=== PATIENT | female | born 1990 | race Caucasian/White ===

== ENCOUNTER 2017-01-12 23:42 | Emergency (ER) | payer OTHER ==
[2017-01-13] MEDS ORDERED: HYDROmorphone 2 MG/ML SDV IVPUSH ONE ×4 (00:07→06:59)
[2017-01-13] MEDS ORDERED: Sodium Chloride 0.9% 10 ML Syringe FLUSH PRN (00:07)
--- NOTE | 2017-01-13 00:19 | EDM.PDOC ---
ED HPI GENERAL MEDICAL PROBLEM - General Chief Complaint: Abdominal Pain Stated Complaint: ABD PAIN Time Seen by Provider: 01/13/17 00:00 Source of Information: Reports: Patient, Family, Old Records History Limitations: Reports: No Limitations - History of Present Illness INITIAL COMMENTS - FREE TEXT/NARRATIVE: Tootie awoke about 1 hour ago with acute colicky RUQ pain with some radiation to the epigastrium. Pain is intense, associated with some nausea, but no vomiting. There is no fever, chills, sweats, voiding sxs, CVA or flank pain. She has taken no meds. - Related Data Allergies Allergy/AdvReac Type Severity Reaction Status Date / Time No Known Allergies Allergy Verified 02/29/16 09:01 Home Meds: Home Meds Albuterol Sulfate [Proair Hfa] 2 puff IH Q6H PRN 02/25/16 [History] Citalopram Hydrobromide [Celexa] 40 mg PO DAILY 02/25/16 [History] Etonogestrel [Nexplanon] 68 mg SQ .CONTINUOUS 02/25/16 [History] Montelukast [Singulair] 10 mg PO BEDTIME 02/25/16 [History] busPIRone [Buspar] 5 mg PO BID 02/25/16 [History] Dextroamphetamine/Amphetamine [Dextroamp-Amphetamin 20 mg Tab] 20 mg PO DAILY [History] Acetaminophen [Tylenol Jr. Meltaways] 640 mg PO Q4H PRN #0 tab.dis 03/03/16 [Rx] Acetaminophen [Tylenol] 650 mg PO Q6H PRN #0 cup 03/03/16 [Rx] HYDROmorphone [Dilaudid] 2 - 4 mg PO Q4H PRN #50 tablet 03/03/16 [Rx] Past Medical History HEENT History: Reports: Allergic Rhinitis Respiratory History: Reports: Asthma Gastrointestinal History: Reports: Other (See Below) (bariatric surgery) Genitourinary History: Reports: Pyelonephritis Psychiatric History: Reports: ADD, Anxiety, Depression Endocrine/Metabolic History: Reports: Obesity/BMI 30+ - Past Surgical History HEENT Surgical History: Reports: None Respiratory Surgical History: Reports: None GI Surgical History: Reports: Bariatric Procedure Female Surgical History: Reports: None Endocrine Surgical History: Reports: None Social & Family History - Tobacco Use Smoking Status *Q: Never Smoker - Caffeine Use Caffeine Use: Reports: None - Recreational Drug Use Recreational Drug Use: No ED ROS GENERAL - Review of Systems Review Of Systems: See Below Constitutional: Reports: Decreased Appetite HEENT: Reports: No Symptoms Respiratory: Reports: No Symptoms Cardiovascular: Reports: No Symptoms Endocrine: Reports: No Symptoms GI/Abdominal: Reports: Abdominal Pain, Decreased Appetite, Nausea : Reports: No Symptoms Musculoskeletal: Reports: No Symptoms Skin: Reports: No Symptoms Neurological: Reports: No Symptoms Psychiatric: Reports: No Symptoms Hematologic/Lymphatic: Reports: No Symptoms Immunologic: Reports: No Symptoms ED EXAM, GI/ABD - Physical Exam Exam: See Below Exam Limited By: No Limitations General Appearance: Alert, WD/WN, Moderate Distress Eyes: Bilateral: Normal Appearance Ears: Normal External Exam Nose: Normal Inspection Throat/Mouth: Normal Inspection, Normal Oropharynx Head: Normocephalic Neck: Normal Inspection, Supple Respiratory/Chest: Lungs Clear, Normal Breath Sounds, Chest Non-Tender Cardiovascular: Normal Peripheral Pulses, Regular Rate, Rhythm, No Murmur GI/Abdominal Exam: Soft, No Organomegaly, No Distention, No Mass, Tender (RUQ) Rectal (Female) Exam: Deferred Back Exam: Normal Inspection Extremities: Normal Inspection Neurological: Alert, Oriented, CN II-XII Intact, Normal Cognition, No Motor/ Sensory Deficits Psychiatric: Normal Affect, Anxious Skin Exam: Warm, Dry Lymphatic: No Adenopathy Course - Vital Signs Text/Narrative:: Tootie was administered Dilaudid 2 jeff IM with improvement in abdominal pain. A F&U abdominal x ray did not demonstrate any specific gas pattern or free air; labs noted total bili: 1.4, no elevation of LFT or CBC. A RUQ US is recommended for later this am. - Orders/Labs/Meds Orders: Active Orders 24 hr Category Date Time Status Abdomen 2V AP Flat Upright [CR] Stat Exams 01/13/17 00:07 Taken Sodium Chloride 0.9% [Normal Saline] 1,000 ml Med 01/13/17 00:15 Active IV ASDIRECTED Sodium Chloride 0.9% [Saline Flush] Med 01/13/17 00:07 Active 10 ml FLUSH ASDIRECTED PRN Peripheral IV Insertion Adult [OM.PC] Routine Oth 01/13/17 00:07 Ordered Medication Orders Sodium Chloride (Normal Saline) 1,000 mls @ 150 mls/hr IV ASDIRECTED BELKIS Last Admin: 01/13/17 00:37 Dose: 150 mls/hr Sodium Chloride (Saline Flush) 10 ml FLUSH ASDIRECTED PRN PRN Reason: Keep Vein Open Labs: Laboratory Tests 01/13/17 01/13/17 01/13/17 Range/Units 00:20 00:20 00:45 WBC 10.8 (4.5-12.0) X10-3/uL RBC 4.36 (3.23-5.20) x10(6)uL Hgb 13.7 (11.5-15.5) g/dL Hct 39.6 (30.0-51.3) % MCV 90.9 (80-96) fL MCH 31.3 (27.7-33.6) pg MCHC 34.5 (32.2-35.4) g/dL RDW 12.3 (11.5-15.5) % Plt Count 244 (125-369) X10(3)uL MPV 9.3 (7.4-10.4) fL Neut % (Auto) 68.6 (46-82) % Lymph % (Auto) 24.7 (13-37) % [place] % (Auto) 5.4 (4-12) % Eos % (Auto) 1 (1.0-5.0) % Baso % (Auto) 0 (0-2) % Neut # (Auto) 7.4 (1.6-8.3) # Lymph # (Auto) 2.7 (0.6-5.0) # [place] # (Auto) 0.6 (0.0-1.3) # Eos # (Auto) 0.1 (0.0-0.8) # Baso # (Auto) 0.0 (0.0-0.2) # Sodium 136 (135-145) mmol/L Potassium 3.1 L (3.5-5.3) mmol/L Chloride 105 (100-110) mmol/L Carbon Dioxide 21 L (23-29) mmol/L BUN 11 (5-20) mg/dL Creatinine 0.8 (0.6-1.3) mg/dL Est Cr Clr Drug Dosing TNP Estimated GFR (MDRD) > 60 (>60) BUN/Creatinine Ratio 13.8 (9-20) Glucose 146 H (80-116) mg/dL Calcium 9.2 (8.6-10.2) mg/dL Total Bilirubin 1.4 H (0.1-1.3) mg/dL AST 23 (5-27) IU/L ALT 20 (14-26) IU/L Alkaline Phosphatase 66 (56-112) IU/L Total Protein 5.3 L (6.0-8.0) g/dL Albumin 4.2 (3.5-5.2) g/dL Globulin 1.1 g/dL Albumin/Globulin Ratio 3.8 Urine Color Yellow (YELLOW) Urine Appearance Clear (CLEAR) Urine pH 7.0 H (5.0-6.5) Ur Specific [place] 1.015 (1.010-1.025) Urine Protein Negative (NEGATIVE) mg/dL Urine Glucose (UA) Normal (NEGATIVE) mg/dL Urine Ketones 15 H (NEGATIVE) mg/dL Urine Occult Blood Negative (NEGATIVE) Urine Nitrite Negative (NEGATIVE) Urine Bilirubin Negative (NEGATIVE) Urine Urobilinogen Normal (NEGATIVE) mg/dL Ur Leukocyte Esterase Negative (NEGATIVE) Urine RBC 0-5 (0) Urine WBC 0-5 (0) Ur Squamous Epith Cells Few H (NS,R,O) Urine Bacteria Few H (NS) Meds: Medications Generic Name Dose Route Start Last Admin Trade Name Freq PRN Reason Stop Dose Admin Sodium Chloride 1,000 mls @ 150 mls/hr 01/13/17 00:15 01/13/17 00:37 Normal Saline IV 150 mls/hr ASDIRECTED BELKIS Administration Sodium Chloride 10 ml 01/13/17 00:07 Saline Flush FLUSH ASDIRECTED PRN Keep Vein Open Discontinued Medications Generic Name Dose Route Start Last Admin Trade Name Freq PRN Reason Stop Dose Admin Hydromorphone HCl 2 mg 01/13/17 00:07 01/13/17 00:25 Dilaudid IVPUSH 01/13/17 00:08 2 mg ONETIME ONE Administration Departure - Departure Time of Disposition: 01:19 Disposition: Home, Self-Care 01 Condition: Fair Clinical Impression: Abdominal pain Qualifiers: Abdominal location: right upper quadrant Qualified Code(s): R10.11 - Right upper quadrant pain - Discharge Information Forms: ED Department Discharge - Problem List & Annotations (1) Abdominal pain SNOMED Code(s): 79643699 Code(s): R10.9 - UNSPECIFIED ABDOMINAL PAIN Status: Acute Current Visit: Yes Annotation/Comment:: Patient advised to return to [facility] for further diagnositic imaging for suspected GB disease. Qualifiers: Abdominal location: right upper quadrant Qualified Code(s): R10.11 - Right upper quadrant pain - Problem List Review Problem List Initiated/Reviewed/Updated: Yes - My Orders Last 24 Hours: My Active Orders 01/13/17 00:07 Abdomen 2V AP Flat Upright [CR] Stat Sodium Chloride 0.9% [Saline Flush] 10 ml FLUSH ASDIRECTED PRN Peripheral IV Insertion Adult [OM.PC] Routine 01/13/17 00:15 Sodium Chloride 0.9% [Normal Saline] 1,000 ml IV ASDIRECTED - Assessment/Plan Last 24 Hours: My Active Orders 01/13/17 00:07 Abdomen 2V AP Flat Upright [CR] Stat Sodium Chloride 0.9% [Saline Flush] 10 ml FLUSH ASDIRECTED PRN Peripheral IV Insertion Adult [OM.PC] Routine 01/13/17 00:15 Sodium Chloride 0.9% [Normal Saline] 1,000 ml IV ASDIRECTED Plan: Follow up later this am for RUQ scan.
[2017-01-13] MEDS: Sodium Chloride 0.9% 1,000 ML IV SCH ×2 (00:37→07:01)
[2017-01-13 07:14] VITALS: BP 128/78
[2017-01-13] MEDS ORDERED: Ondansetron 4 MG/2 ML SDV IVPUSH ONE (07:45)
[2017-01-13] MEDS ORDERED: fentaNYL 100 MCG/2 ML SDV IVPUSH ONE (07:45)
[2017-01-13] MEDS ORDERED: Iopamidol 755 Mg/ML 100 ML Bottle IV ONE (08:13)
[2017-01-13] MEDS ORDERED: Barium Sulfate w/v 2.1% Oral Susp 450 ML Bottle PO SCH (08:15)
--- NOTE | 2017-01-15 11:16 | CR ---
INDICATION: Abdominal pain right upper quadrant. ABDOMEN: Four images of the abdomen in supine and upright projections revealed some minimal air-fluid levels in the right flank with gas throughout the colon, including the rectum. No significant distention was identified to strongly suggest a mechanically obstructive process of any longstanding. Findings more likely represent either early gastroenteritis or localized paralytic ileus such as secondary to cholecystitis, pancreatitis, etc. No organomegaly or mass lesions were identified. Evidence of previous surgery with bowel anastomosis is noted in the right mid abdomen. Very minimal dextroconvex rotoscoliosis of the upper middle lumbar spine is noted. No pathologic calcifications were seen. IMPRESSION: Minimal air-fluid levels in the right flank. Question the possibility of early gastroenteritis or a mild localized paralytic ileus. Findings should be correlated clinically. Follow-up may be warranted depending upon clinical course. MTDD
--- NOTE | 2017-01-16 14:14 | ER ---
DATE SEEN: 01/12/2017 TIME SEEN: The patient was seen at 0715 hours. HISTORY OF PRESENT ILLNESS: The patient noticed pain around 0700 hours. She was awakened at 0730 hours with severe pain in right upper quadrant. 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 She had decreased p.o. intake. Her gallbladder was not taken out. She denies fever or chills, nausea, vomiting, diarrhea, constipation, blood in her stool, black tarry stools. Last menstrual period not obtained. The patient notes her pain is 7/10 in intensity. The patient has had duodenal switch (gastric bypass surgery) by Dr. Larkin at [facility] in [place]. The patient is in tears because of the pain. CURRENT MEDICATIONS: 1. Omeprazole 20 mg b.i.d. 2. Dextroamphetamine 20 mg b.i.d. 3. BuSpar. 4. Albuterol. 5. Tylenol. 6. Citalopram. 7. Montelukast. PAST MEDICAL HISTORY: 1. Allergies. 2. GERD. 3. ADHD. 4. Depression. 5. Asthma. REVIEW OF SYSTEMS: Otherwise negative except for noted above in the HPI. PHYSICAL EXAMINATION: VITAL SIGNS: Blood pressure was 106/72, heart rate was 78, respirations 18, oxygen saturation was 100%, and temperature was 36.4 degrees centigrade. GENERAL: Alert, tall, well-muscled, and remarkably decreased fatty tissue in her entire body. HEENT: Without abnormality. No thyromegaly. No masses in her neck. Pharynx without erythema. NECK: Supple. No bruits in neck. LUNGS: Clear to auscultation without rales, rhonchi, or wheezes. HEART: S1 and S2. No murmur. ABDOMEN: Surprisingly soft and bowel sounds are appropriate. Heel jar test is negative. No peritoneal rebound. No CVA percussion tenderness. On further examination of the abdomen, mid epigastrium and subxiphoid region with mild discomfort. Carnett's test is negative. No masses are noted. PELVIC: Not performed. RECTAL: Not performed. EXTREMITIES: Lower extremities are without edema. NEUROLOGICAL: Deep tendon reflexes are normal in upper and lower extremities. LABORATORY FINDINGS: White count is normal at 10,800, PMNs 69, lymphocytes 25, monocytes 4, and hemoglobin 13.7. She had mild hypokalemia and decreased CO2. Potassium of 3.1, sodium 136, chloride 105, creatinine 0.8, BUN 11, glucose 146, bilirubin 1.4, total protein 5.3, and albumin is normal at 4.2 and remainder of the enzymes normal. Amylase is negative. Urinalysis negative, except for 15 ketones. ASSESSMENT: 1. Abdominal pain, etiology is indeterminate. CAT scan was performed, no evidence for unusual abnormality on CAT scan. She has mild panniculitis in right lower quadrant and mesentery. It may be secondary to surgery and is likely to be chronic. 2. Dense layer of gallbladder sludge on the CAT scan. No evidence for cholecystitis on the basis of her CAT scan. 3. The patient has so much pain. She was treated on multiple occasions with 2 mg of hydromorphone x1 and 1 mg in repeated dose x1 per Dr. Reynolds at 0008 hours and then another dose of 2 mg Dilaudid plus followed by 100 mcg of fentanyl to decrease her pain. PLAN: The patient's status was discussed with Dr. Booker. The patient wants very much to go to [facility] for further evaluation. She does not want to go back to [place]. The patient's arrangements were made with Dr. Booker, to have the patient admitted and observed and treated and further evaluation. /[id number] CHERRI/FRANCHESKA
== END 2017-01-13 09:55 | disposition home or self-care (01) ==
LOC: FB.ED 23:42
DX: R10.11 Right upper quadrant pain (principal)
CPT/HCPCS: 36415; 74020; 74177; 80053; 81001; 82150; 85025; 96361; 96374; 96375; 96376; 99285; J1170; J2405; J3010; J7040; Q9967